=== PATIENT | male | born 1990 | race African-American/Black ===

== ENCOUNTER 2017-12-09 19:52 | Emergency (ER) | payer SELFPAY ==
[2017-12-09 19:46] LABS: BASO % 0.4 % (0.0-1.0); EOS # 0.1 10^3/uL (0.0-0.50); HEMATOCRIT 36.9 % (42.0-52.0); HEMOGLOBIN 12.6 g/dl (13.5-17.5); IMMATURE GRANULOCYTE % 0.2 % (0-3.0); LYMPH # 1.5 10^3/uL (1.5-6.5); LYMPH % 29.9 % (24.0-44.0); MEAN CORPUSCULAR HEMOGLOBIN 28.3 pg (27.0-33.0); MEAN CORPUSCULAR HGB CONC 34.1 g/dl (32.0-36.5); MEAN CORPUSCULAR VOLUME 82.7 fl (80.0-96.0); MONO # 0.6 10^3/uL (0.0-0.8); MONO % 12.3 % (0.0-5.0); NEUTROPHILS # 2.7 10^3/uL (1.8-7.7); NEUTROPHILS % 56.2 % (36.0-66.0); PLATELET COUNT, AUTOMATED 264 10^3/uL (150-450); RED BLOOD COUNT 4.46 10^6/uL (4.30-6.10); RED CELL DISTRIBUTION WIDTH 12.8 % (11.5-14.5); WHITE BLOOD COUNT 4.9 10^3/uL (4.0-10.0)
[2017-12-09 20:10] LABS: ALBUMIN/GLOBULIN RATIO 1.18 (1.00-1.93); ALKALINE PHOSPHATASE 53 U/L (45-117); ALT/SGPT 22 U/L (12-78); ANION GAP 9 MEQ/L (8-16); AST/SGOT 13 U/L (7-37); BILIRUBIN,DIRECT 0.2 MG/DL (0.0-0.2); BILIRUBIN,TOTAL 0.6 MG/DL (0.2-1.0); BLOOD UREA NITROGEN 14 MG/DL (7-18); CALCIUM LEVEL 8.3 MG/DL (8.5-10.1); CARBON DIOXIDE LEVEL 25 MEQ/L (21-32); CHLORIDE LEVEL 109 MEQ/L (98-107); CREATININE FOR GFR 0.95 MG/DL (0.70-1.30); GLOMERULAR FILTRATION RATE > 60.0 (>60); GLUCOSE, FASTING 94 MG/DL (70-100); LIPASE 76 U/L (73-393); POTASSIUM SERUM 3.9 MEQ/L (3.5-5.1); SODIUM LEVEL 143 MEQ/L (136-145); TOTAL PROTEIN 7.4 GM/DL (6.4-8.2)
[2017-12-09] MEDS: NS 1,000 ML IV (20:30)
[2017-12-09] MEDS: KETOROLAC 30 MG/ML VIAL (J1885) IV (20:32)
== END 2017-12-09 21:48 | disposition home or self-care (01) ==
LOC: M ED 19:52
DX: K59.00 Constipation, unspecified (principal); F17.200 Nicotine dependence, unspecified, uncomplicated
CPT/HCPCS: J1885

== ENCOUNTER 2018-01-07 13:19 | Emergency (ER) | payer OTHER, SELFPAY | END 2018-01-07 14:34 | disposition home or self-care (01) | LOC: M ED 13:19 | DX: S62.397A Other fracture of fifth metacarpal bone, left hand, initial encounter for closed fracture (principal); W22.8XXA Striking against or struck by other objects, initial encounter; Y92.89 Other specified places as the place of occurrence of the external cause; F17.210 Nicotine dependence, cigarettes, uncomplicated | CPT/HCPCS: 73130 ==

== ENCOUNTER 2018-03-16 10:41 | Emergency (ER) | payer OTHER | END 2018-03-16 11:40 | disposition home or self-care (01) | LOC: M ED 10:41 | DX: S92.324A Nondisplaced fracture of second metatarsal bone, right foot, initial encounter for closed fracture (principal); S90.414A Abrasion, right lesser toe(s), initial encounter; W22.8XXA Striking against or struck by other objects, initial encounter; Y92.018 Other place in single-family (private) house as the place of occurrence of the external cause; Y93.69 Activity, other involving other sports and athletics played as a team or group | CPT/HCPCS: 73660 ==

== ENCOUNTER 2019-07-12 09:14 | Emergency (ER) | payer OTHER ==
[~2019-07-12] VITALS: Ht 177.8 cm; Wt 100.0 kg
[~2019-07-12 09:14] MED LIST: HYDR-3715 PO; KEFL500C17 PO
[2019-07-12] MEDS ORDERED: PARO20TA3 (09:30)
[2019-07-12] MEDS ORDERED: TRAZ-257 (09:30)
[2019-07-12] MEDS ORDERED: KETOROLAC TROMETHAMINE 10 MG TAB PO ONE (10:00)
[2019-07-12 12:08] LABS: CHLAMYDIA DNA AMPLIFICATION NEGATIVE (NEGATIVE); GC DNA AMPLIFICATION NEGATIVE (NEGATIVE)
[2019-07-12 12:22] VITALS: BP 133/73
== END 2019-07-12 12:25 | disposition home or self-care (01) ==
LOC: EDBD 09:14 → M ED 09:14
DX: N48.30 Priapism, unspecified (principal); F32.9 Major depressive disorder, single episode, unspecified; F17.200 Nicotine dependence, unspecified, uncomplicated; F12.10 Cannabis abuse, uncomplicated; Z79.899 Other long term (current) drug therapy

== ENCOUNTER 2020-05-10 14:08 | Inpatient (IN) | payer OTHER ==
[~2020-05-10] VITALS: Ht 177.8 cm; Wt 90.9 kg
[~2020-05-10 14:08] MED LIST changes: +PARO20TA3; +TRAZ-257
[2020-05-10] MEDS ORDERED: ZIPRASIDONE 20 MG/ML IM ONE (14:15)
[2020-05-10 15:32] LABS: HEMATOCRIT 40.1 % (42.0-52.0); HEMOGLOBIN 13.1 g/dl (13.5-17.5); MEAN CORPUSCULAR HGB CONC 32.7 g/dl (32.0-36.5); MEAN CORPUSCULAR VOLUME 82.7 fl (80.0-96.0); PLATELET COUNT, AUTOMATED 291 10^3/uL (150-450); RED BLOOD COUNT 4.85 10^6/uL (4.30-6.10); WHITE BLOOD COUNT 3.8 10^3/uL (4.0-10.0)
[2020-05-10 15:52] LABS: AMPHETAMINES LEVEL URINE NEGATIVE (NEGATIVE); BARBITURATES URINE NEGATIVE (NEGATIVE); BENZODIAZEPINES URINE NEGATIVE (NEGATIVE); CANNABINOIDS URINE POSITIVE (NEGATIVE); COCAINE METABOLITE URINE NEGATIVE (NEGATIVE); METHADONE URINE NEGATIVE (NEGATIVE); OPIATES URINE NEGATIVE (NEGATIVE); PHENCYCLIDINE URINE NEGATIVE (NEGATIVE)
[2020-05-10 16:03] LABS: ACETAMINOPHEN LEVEL < 2.0 UG/ML (10.0-30.0); ALBUMIN 3.9 GM/DL (3.2-5.2); ALT/SGPT 40 U/L (12-78); BILIRUBIN,DIRECT < 0.1 MG/DL (0.0-0.2); BILIRUBIN,TOTAL 0.4 MG/DL (0.2-1.0); BLOOD UREA NITROGEN 8 MG/DL (7-18); CALCIUM LEVEL 8.8 MG/DL (8.5-10.1); CARBON DIOXIDE LEVEL 24 MEQ/L (21-32); CHLORIDE LEVEL 109 MEQ/L (98-107); CREATININE FOR GFR 1.04 MG/DL (0.70-1.30); ETHYL ALCOHOL (ETHANOL) 0.175 % (0.000-0.010); GLOMERULAR FILTRATION RATE > 60.0 (>60); GLUCOSE, FASTING 76 MG/DL (70-100); POTASSIUM SERUM 3.3 MEQ/L (3.5-5.1); SALICYLATE LEVEL 2.1 MG/DL (5.0-30.0); SODIUM LEVEL 142 MEQ/L (136-145); TOTAL PROTEIN 7.6 GM/DL (6.4-8.2)
--- NOTE | 2020-05-11 20:35 | ECGEPIP ---
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
[2020-05-11] MEDS ORDERED: diphenhydrAMINE 50MG CAP PO ONE (22:00)
[2020-05-12] MEDS ORDERED: LORazepam 2 MG TAB PO PRN (07:45)
[2020-05-12] MEDS ORDERED: POTASSIUM CHLORIDE 10 MEQ SR TABLET PO ONE (08:00)
[2020-05-12] MEDS ORDERED: FOLIC ACID 1 MG TAB PO SCH (09:00)
[2020-05-12] MEDS ORDERED: THIAMINE 100 MG TAB PO SCH (09:00)
[2020-05-12] MEDS ORDERED: MULTIVITAMINS/MINERALS THERAP 1 TAB PO SCH (09:00)
[2020-05-12] MEDS ORDERED: NICOTINE 21MG/24HR 1 EA TRANSDERMAL TD ONE (13:45)
[2020-05-12] MEDS ORDERED: MAALOX 30 ML SUSP *UDC PO PRN (18:30)
[2020-05-12] MEDS ORDERED: traZODone 50 MG TAB PO PRN (18:30)
[2020-05-12] MEDS ORDERED: MOM 30ML SUSPENSION UDC PO PRN (18:30)
[2020-05-12] MEDS ORDERED: ACETAMINOPHEN TAB 650MG DOSE (2X325MG) PO PRN (18:30)
[2020-05-12 21:46] VITALS: BP 138/90
[2020-05-12] MEDS ORDERED: QUEtiapine FUMARATE 50 MG TAB PO ONE (23:00)
[2020-05-13 06:22] VITALS: BP 124/90
[2020-05-13] MEDS: NICOTINE 21MG/24HR 1 EA TRANSDERMAL TD SCH (09:00)
[2020-05-13] MEDS ORDERED: POTASSIUM CHLORIDE 10 MEQ SR TABLET PO ONE (10:45)
[2020-05-13] MEDS ORDERED: SERTRALINE HCL 25 MG TABLET PO ONE (12:30)
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
[2020-05-13 18:00] VITALS: BP 141/89
--- NOTE | 2020-05-13 18:01 | HPEPDOC ---
General Date of Admission May 12, 2020 at 18:23 Date of Service: May 13, 2020 Chief Complaint The patient is a 29-year-old male admitted with a reason for visit of Unspecified Depressive Disorder. Source: Patient History of Present Illness 29 year old disabled vet since 2014 due to back and shoulder issues with h/o depression , ADHD, PTSD as a child was admitted to [facility] for unspecified depression. He was brought in by police as he was walking in and out off traffic in an intoxicated state. On presentation he was very emotional and crying and agitated. He reported that his sister of an OD ont he thanks giving morning last week and earlier in the year his brother was found in a pond behind his grandmothers house. He has been feeling very down , lonely and depressed. He however denied any suicidal intent when he was weaving in and out of traffic. He stated he was just trying to get to [place]. Today he denied any medical complaints. Home Medications No Active Prescriptions or Reported Meds Allergies Coded Allergies: No Known Allergies (Unverified , 12/09/17) Past Medical History Medical History Sickle cell trait Back and shoulder pain Surgical History wisdom tooth removal Family History Patient is adapted. Knows his biological father 10 years ago. Does not know anything about biological mother Social History * Smoker: current smoker Drugs: marijuana A-FIB/CHADSVASC A-FIB History Current/History of A-Fib/PAF?: No Review of Systems Constitutional: Denies: Chills, Fever, Night Sweats Eyes: Denies: Pain, Vision change ENT: Denies: Head Aches, Ear Pain, Dysphagia Skin: Denies: Rash, Lesions, Breakdown Pulmonary: Denies: Dyspnea, Cough Cardiovascular: Denies: Chest Pain, Palpitations, Orthopnea, Paroxysmal Noc. Dyspnea, Lt Headedness Gastrointestinal: Denies: Nausea, Vomiting, Abdominal Pain, Diarrhea Genitourinary: Denies: Dysuria, Frequency, Incontinence, Retention Hematologic: Denies: Bruising, Bleeding Excessively Musculoskeletal: Reports: Back Pain, Shoulder Pain Neurological: Denies: Weakness, Numbness, Change in speech, Confusion Physical Examination General Exam: Positive: Alert, Cooperative, No Acute Distress Eye Exam: Positive: PERRLA, Conjunctiva & lids normal, EOMI; Negative: Sclera icteric ENT Exam: Positive: Atraumatic, Mucous membr. moist/pink, Pharynx Normal Neck Exam: Positive: Supple; Negative: JVD, thyromegaly Chest Exam: Positive: Clear to auscultation, Normal air movement Heart Exam: Positive: Rate Normal, Regular Rhythm, Normal S1, Normal S2; Negative: Murmurs, Rubs Abdomen Exam: Positive: Normal bowel sounds, Soft; Negative: Tenderness, Hepatospenomegaly Extremity Exam: Positive: Normal pulses; Negative: Clubbing, Cyanosis, Edema Skin Exam: Positive: Nl turgor and temperature; Negative: Breakdown, Lesion Vital Signs Vital Signs Date Time Temp Pulse Resp B/P (MAP) Pulse Ox O2 Delivery O2 Flow Rate FiO2 05/13/20 06:22 98.8 72 18 124/90 (101) 05/12/20 21:46 99 Room Air Assessment/Plan 29 year old disabled vet since 2014 due to back and shoulder issues with h/o depression , ADHD, PTSD as a child was admitted to [facility] for unspecified depression. i am seeing the pateitn for medical history and physical. Depression as per psychiatry. Substance abuse alcohol and marijuana. No active medical issues at this time will sign off. Plan / VTE VTE Prophylaxis Ordered?: No (freely ambulatory.) GABO STEVENS MD May 13, 2020 18:01
[2020-05-13] MEDS ORDERED: zolPIDEM TARTRATE 5 MG TAB PO ONE (21:00)
[2020-05-14 06:30] VITALS: BP 112/78
[2020-05-14] MEDS ORDERED: SERTRALINE HCL 50 MG TAB PO SCH (09:00)
[2020-05-14] MEDS: NICOTINE 21MG/24HR 1 EA TRANSDERMAL TD SCH (09:00)
--- NOTE | 2020-05-14 13:35 | MHDSPDOC ---
[facility] Discharge Summary Discharge Summary DATE OF ADMISSION: May 12, 2020 at 18:23 DATE OF DISCHARGE: May 14, 2020 at 11:03 DISCHARGE DIAGNOSES: Unspecified depressive disorder Alcohol use disorder Aannabis use disorder REASON FOR ADMISSION: Patient is a 29 -year-old Single, Disabled , Domiciled, , male, who was reportedly running in traffic but states that he was trying to walk to [place]. He states that he was drinking and his friend invited him to his house in [place] to "smoke weed" and he couldn't get a ride and decided to walk but he has done this many times before. He denies that he was suicidal, states that he didn't want to wait for his phone to charge and he didn't want to be alone so he started walking. He reports that he does this often and that he was stumbling on the road because he was inebriated. CONSULTANTS INVOLVED: see [facility] TREATMENT AND PROGRESS ON THE UNIT: Patient was admitted to the [facility] on a 9.39 legal status he was afforded the following treatment modalities: 1) Individual Therapy 2) Group Therapy 3) Medication Management 4) Milieu Therapy 5) Safe Environment HOSPITAL COURSE: Patient was initially seen yesterday. Patient was requesting discharge yesterday and I thought that he could be discharged at that time, but patient was requesting to start anti-depressants. He was agreeable to start Zoloft yesterday and to be observed for any adverse effects. Patient was visible on the unit, social with peers, and was compliant with treatment. DISCHARGE ASSESSMENT: Patient is alert and oriented, smiles on approach and engaged in the individual session. In his discharge assessment, patient reports that he is definitely returning to [place] where his parents/family live. He states that he can access [facility] at the nearest City near his parent's home. He denies depression, suicidal ideation and anxiety. Patient is observed with normal mentation and meets criteria for discharge today. MENTAL STATUS EXAMINATION ON DISCHARGE: Patient is a 29 -year-old Single, Disabled [place], Domiciled, , male, who was reportedly running in traffic but states that he was trying to walk to [place]. He states that he was drinking and his friend invited him to his house in [place] to "smoke weed" and he couldn't get a ride and decided to walk but he has done this many times before. In today's interview he is calm and cooperative, appears his stated age, appearance/hygiene and grooming is well-kempt, maintains good eye contact, no psychomotor agitation or retardation. Speech: Is fluid, conversant, normal rate, tone and volume Language skills are intact Thought processes including: linear and goal oriented Thought content: denies depression and anxiety. Denies suicidal/homicidal ideation, planning or intent. Abstract reasoning, and computation: fair Description of associations: denies, none observed Description of abnormal or psychotic thoughts: denies, none observed. Judgment: fair Insight: fair Orientation: alert and oriented to person, place, time and situation Recent and remote memory: intact Attention span and concentration: good Language: expansive Fund of knowledge: average Mood: Euthymic Mood Affect: reactive MEDICATIONS ON DISCHARGE: Zoloft 50 mg daily PLAN/FOLLOWUP ARRANGEMENTS: Patient is returning to his home state [place] where his Adoptive Parents live and [facility] which [facility]'s hope The amount of time spent in the coordination of care for this patient was approximately 60 minutes. Vital Signs/I&Os Vital Signs Date Time Temp Pulse Resp B/P (MAP) Pulse Ox O2 Delivery O2 Flow Rate FiO2 05/14/20 06:30 99.2 69 18 112/78 (89) 05/12/20 21:46 99 Room Air Medications No Active Prescriptions or Reported Meds Allergies Coded Allergies: No Known Allergies (Unverified , 12/09/17) LAURENT UMANZOR NP May 14, 2020 13:30
== END 2020-05-14 11:03 | disposition home or self-care (01) | DRG 754 ==
LOC: M ED 14:08 → M ED INP 05-12 18:23 → M PSY 05-12 21:23
PROVIDERS: ADMIT Psychiatry & Neurology Addiction Medicine; ATTEND Psychiatry & Neurology Psychiatry
DX: F32.9 Major depressive disorder, single episode, unspecified (principal); D57.3 Sickle-cell trait; F10.10 Alcohol abuse, uncomplicated; F12.90 Cannabis use, unspecified, uncomplicated